=== PATIENT | female | born 1975 | race Two or more races ===

== ENCOUNTER 2020-06-01 13:15 | Emergency (ER) | payer OTHER ==
[~2020-06-01] VITALS: Ht 154.9 cm; Wt 48.5 kg
== END 2020-06-01 21:48 | disposition home or self-care (01) ==
LOC: ER 13:15
DX: C79.51 Secondary malignant neoplasm of bone (principal); C50.911 Malignant neoplasm of unspecified site of right female breast; D63.0 Anemia in neoplastic disease; Z03.818 Encounter for observation for suspected exposure to other biological agents ruled out; R53.1 Weakness

== ENCOUNTER 2020-09-08 11:27 | Inpatient (IN) | payer OTHER ==
[~2020-09-08] VITALS: Ht 154.9 cm; Wt 47.6 kg
[2020-09-09] MEDS ORDERED: DAFLONEX-XL 11300 MG (08:26)
[2020-09-09] MEDS ORDERED: METAXALONE400 MG (08:27)
== END 2020-09-10 15:46 | disposition home or self-care (01) | DRG 812 ==
LOC: SEC-K 11:27 → MEDJ 11:27
PROVIDERS: ADMIT Internal Medicine Hematology & Oncology; ATTEND Internal Medicine Hematology & Oncology
PROC: 30233N1 Transfusion of Nonautologous Red Blood Cells into Peripheral Vein, Percutaneous Approach (ICD-10-PCS; principal; 2020-09-08)
DX: D50.0 Iron deficiency anemia secondary to blood loss (chronic) (principal); E44.0 Moderate protein-calorie malnutrition; N93.8 Other specified abnormal uterine and vaginal bleeding; C50.411 Malignant neoplasm of upper-outer quadrant of right female breast; G89.3 Neoplasm related pain (acute) (chronic)
CPT/HCPCS: 240

== ENCOUNTER 2022-12-03 10:33 | Inpatient (IN) | payer OTHER ==
[~2022-12-03] VITALS: Ht 154.9 cm; Wt 44.0 kg
[~2022-12-03 10:33] MED LIST: DAFLONEX-XL 11300 MG; METAXALONE400 MG
[2022-12-05] MEDS ORDERED: GABAPENTIN250 MG/5 M PO (13:04)
[2022-12-05] MEDS ORDERED: RESTORIL15 MG PO (13:04)
[2022-12-05] MEDS ORDERED: TRAMADOL HCL50 MG PO (13:06)
[2022-12-05] MEDS ORDERED: LIDODERM1 EACH TOP (13:07)
== END 2022-12-05 14:43 | disposition home or self-care (01) | DRG 580 ==
LOC: MEDI 10:33
PROVIDERS: ADMIT Internal Medicine Hematology & Oncology; ATTEND Internal Medicine Hematology & Oncology
PROC: 07B53ZX Excision of Right Axillary Lymphatic, Percutaneous Approach, Diagnostic (ICD-10-PCS; principal; 2022-12-03)
PROC: 07B63ZX Excision of Left Axillary Lymphatic, Percutaneous Approach, Diagnostic (ICD-10-PCS; 2022-12-03)
PROC: 30233N1 Transfusion of Nonautologous Red Blood Cells into Peripheral Vein, Percutaneous Approach (ICD-10-PCS; 2022-12-03)
PROC: 0W993ZZ Drainage of Right Pleural Cavity, Percutaneous Approach (ICD-10-PCS; 2022-12-03)
DX: C50.411 Malignant neoplasm of upper-outer quadrant of right female breast (principal); C77.3 Secondary and unspecified malignant neoplasm of axilla and upper limb lymph nodes; C79.71 Secondary malignant neoplasm of right adrenal gland; J90 Pleural effusion, not elsewhere classified; E44.0 Moderate protein-calorie malnutrition; G89.3 Neoplasm related pain (acute) (chronic); D63.0 Anemia in neoplastic disease

== ENCOUNTER 2022-12-12 08:03 | Inpatient (IN) | payer OTHER ==
[~2022-12-12] VITALS: Ht 2.5 cm; Wt 44.0 kg
[~2022-12-12 08:03] MED LIST changes: +GABAPENTIN250 MG/5 M PO; +LIDODERM1 EACH TOP; +RESTORIL15 MG PO; +TRAMADOL HCL50 MG PO
--- NOTE | 2022-12-12 08:21 | NUR ---
SE RECIBE PTE ALERTA Y ORIENTADA X3 LA MISMA REFIERE PRESENTAR APRETADO EL PECHO Y [place] EN LA ESPALDA. REFIERE QUE LE HICIERON PROCEDIMIENTO DE EXTRACCION DE LIQUIDO DE PULMON Y TRANSFUNDIERON EL DE 2022.
--- NOTE | 2022-12-12 10:21 | NUR ---
PACIENTE EVALUADA POR DR. MCCOY QUIEN ORDENA TRATAMIENTO. SE ORIENTA PACIENTE SOBRE TRATAMIENTO QUIEN REFIERE ENTENDER. SE SHIRLEY MUESTRAS DE ALISON BAJO MEDIDAS ASEPTICAS, SE ADMINISTRAN MEDICAMENTOS CHRISTY ORDEN MEDICA. SE NOTIFICA A PERSONAL DE CENTRO DE IMAGENES.
== END 2022-12-21 18:03 | disposition home or self-care (01) | DRG 178 ==
LOC: ER 08:03 → MEDJ 17:45 → SEC-K 17:45 → MEDJ 20:10
PROVIDERS: ADMIT Specialist; ATTEND Specialist
PROC: 8E0ZXY6 Isolation (ICD-10-PCS; principal; 2022-12-12)
PROC: BR27ZZZ Computerized Tomography (CT Scan) of Thoracic Spine (ICD-10-PCS; 2022-12-12)
PROC: 3E0F7GC Introduction of Other Therapeutic Substance into Respiratory Tract, Via Natural or Artificial Opening (ICD-10-PCS; 2022-12-12)
PROC: 3E0F7SF Introduction of Other Gas into Respiratory Tract, Via Natural or Artificial Opening (ICD-10-PCS; 2022-12-12)
PROC: BR29ZZZ Computerized Tomography (CT Scan) of Lumbar Spine (ICD-10-PCS; 2022-12-12)
PROC: 0W993ZZ Drainage of Right Pleural Cavity, Percutaneous Approach (ICD-10-PCS; 2022-12-18)
PROC: 0W9B3ZZ Drainage of Left Pleural Cavity, Percutaneous Approach (ICD-10-PCS; 2022-12-19)
DX: U07.1 COVID-19 (principal); C77.1 Secondary and unspecified malignant neoplasm of intrathoracic lymph nodes; C79.51 Secondary malignant neoplasm of bone; C77.3 Secondary and unspecified malignant neoplasm of axilla and upper limb lymph nodes; J91.0 Malignant pleural effusion; J91.8 Pleural effusion in other conditions classified elsewhere; G89.3 Neoplasm related pain (acute) (chronic); C50.411 Malignant neoplasm of upper-outer quadrant of right female breast; M54.9 Dorsalgia, unspecified; M54.6 Pain in thoracic spine; M25.551 Pain in right hip; R07.9 Chest pain, unspecified; E83.51 Hypocalcemia; E88.09 Other disorders of plasma-protein metabolism, not elsewhere classified; M34.9 Systemic sclerosis, unspecified; M35.00 Sjogren syndrome, unspecified; Z74.01 Bed confinement status; Z17.0 Estrogen receptor positive status [ER+]

== ENCOUNTER 2023-08-29 18:25 | Inpatient (IN) | payer OTHER ==
[~2023-08-29] VITALS: Ht 152.4 cm; Wt 45.4 kg
[~2023-08-29 18:25] MED LIST changes: +ALDACTONE50 MG PO; +ANASTROZOLE1 MG PO; +IBRANCE125 MG PO; +LASIX20 MG PO; +SULINDAC200 MG PO
--- NOTE | 2023-08-29 18:40 | NUR ---
PTE ALERTA Y ORIENTADA X 3 ESFERAS EN [place] EN [place] DE FAMILIAR QUIEN REFIERE DOLOR GENERALIZADO,FALTA DE AIRE POR AGUA EN PULMONES Y NO PODER CAMINAR,PTE SE REALIZO PLACA EN EL CAROL ANN DE HOY. PTE CON DIAGNOSTICO DE CA SENO MESTATIZADO A HUESO,SE ENCUENTRA EN QUIMIOTERAPIA POR BOCA,REFERIDA POR DR MAHESH RUIZ.AL MOMENTO NO PRESENTA DIFICULTAD RESP Y HABLA EN ORACIONES COMPLETAS,SATURANDO 99%.
[2023-08-29] MEDS ORDERED: MORPHINE SULFATE 4 MG/ML VIAL IV STA (19:09)
[2023-08-29] MEDS ORDERED: GABAPENTIN 250 MG/5 ML ML PO SCH (19:10)
[2023-08-29] MEDS ORDERED: MORPHINE SULFATE 4 MG/ML VIAL IV PRN (19:15)
[2023-08-29] MEDS ORDERED: 0.9 % SODIUM CHLORIDE 1,000 ML IV SCH (19:15)
[2023-08-29 21:12] LABS: ABG PO2 106.1 mmHg (80-100); ABG pCO2 41.6 mmHg (35-45); BASE EXCESS 1.7 mmol/l; BICARBONATE 26.4 mmol/l (23-25); SaO2 98.2 %; Tco2 27.7 mmol/l
[2023-08-29 21:13] LABS: allen test SATISFACTORY; o2 21 %; puncture site RADIAL RIGHT
[2023-08-29 21:16] LABS: HEMATOCRIT 25.7 % (36.0-45.00); MEAN CELL VOLUME 95.2 fL (80.00-100.00); MEAN CORPUSCULAR HGB CONC 33.1 g/dl (32.0-36.0); PLATELET COUNT 394 K/uL (150-450); RED CELL DISTRIBUTION WIDTH 18.8 % (11.5-14.5)
[2023-08-29 21:17] LABS: HEMOGLOBIN 8.5 g/dL (12.0-15.00); MEAN CORPUSCULAR HEMOGLOBIN 31.4 pg (27.00-32.0)
[2023-08-29 21:30] LABS: ALBUMIN 3.6 gm/dL (3.4-5.0); BILIRUBIN TOTAL 0.55 mg/dL (0.3-1.2); CALCIUM 8.5 mg/dL (8.5-10.1); CREATININE SERUM 0.58 mg/dL (0.55-1.02); GFR 110.04; GLOBULINA 5.9 G/DL (2.4-3.5); POTASSIUM 4.1 mEq/L (3.5-5.1); TOTAL PROTEIN 9.5 gm/dL (6.4-8.2)
[2023-08-29 21:35] LABS: INR 1.04; PARTIAL THROMBOPLASTIN TIME 33.7 SECONDS (22.0-34.0); PROTHROMBIN TIME 10.9 SECONDS (9.0-11.5)
[2023-08-30] MEDS ORDERED: MORPHINE SULFATE 4 MG/ML CARTRIDGE IV PRN (15:00)
[2023-08-30] MEDS ORDERED: MORPHINE SULFATE IV SCH (17:15)
[2023-08-31] MEDS ORDERED: LIDOCAINE 5% 1 PATCH ADH. TOP SCH (12:00)
[2023-08-31 14:35] LABS: HEMATOCRIT 27.2 % (36.0-45.00); HEMOGLOBIN 9.3 g/dL (12.0-15.00); MEAN CELL VOLUME 90.5 fL (80.00-100.00); MEAN CORPUSCULAR HEMOGLOBIN 31.1 pg (27.00-32.0); MEAN CORPUSCULAR HGB CONC 34.3 g/dl (32.0-36.0); PLATELET COUNT 231 K/uL (150-450); RED BLOOD COUNT 3.01 M/uL (4.00-6.00); RED CELL DISTRIBUTION WIDTH 21.4 % (11.5-14.5)
[2023-08-31] MEDS ORDERED: MULTIVIT INFUSN,ADULT 4,VIT K 10 ML VIAL IV SCH (15:14)
[2023-08-31] MEDS ORDERED: DIPHENHYDRAMINE HCL 50 MG/ML VIAL 1ML IV STA (16:44)
[2023-08-31] MEDS ORDERED: DEXAMETHASONE SODIUM PHOSP/PF 10 MG/ML VIAL IV STA (16:46)
[2023-08-31] MEDS ORDERED: SOD FERRIC GLUC COMPLX/SUCROSE 62.5 MG in 0.9 % SODIUM CHLORIDE 50 ML IV SCH (17:00)
[2023-08-31] MEDS ORDERED: AA 4.25%/CAL/LYTES/DEXT 5% 1,000 ML PERIFERAL SCH (17:00)
[2023-08-31] MEDS ORDERED: FAMOTIDINE/PF 20 MG/2 ML VIAL IV PUSH STA (17:03)
[2023-08-31] MEDS ORDERED: PANTOPRAZOLE SODIUM 40 MG TABLET.DR PO SCH (17:15)
[2023-08-31] MEDS ORDERED: DIPHENHYDRAMINE HCL 50 MG/ML VIAL 1ML IV SCH (18:00)
[2023-09-01] MEDS ORDERED: FAMOTIDINE/PF 20 MG/2 ML VIAL IV PUSH SCH (05:00)
[2023-09-01] MEDS ORDERED: DEXAMETHASONE SODIUM PHOSP/PF 10 MG/ML VIAL IV SCH ×2 (09:00→14:00)
[2023-09-02 07:22] LABS: HEMATOCRIT 28.8 % (36.0-45.00); HEMOGLOBIN 9.7 g/dL (12.0-15.00); MEAN CELL VOLUME 90.8 fL (80.00-100.00); MEAN CORPUSCULAR HEMOGLOBIN 30.5 pg (27.00-32.0); MEAN CORPUSCULAR HGB CONC 33.6 g/dl (32.0-36.0); PLATELET COUNT 227 K/uL (150-450); RED BLOOD COUNT 3.17 M/uL (4.00-6.00); RED CELL DISTRIBUTION WIDTH 21.2 % (11.5-14.5)
[2023-09-02 07:23] LABS: ALBUMIN 2.6 gm/dL (3.4-5.0); BILIRUBIN TOTAL 0.57 mg/dL (0.3-1.2); BILIRUBIN,CONJUGATED 0.12 mg/dL (0.0-0.2); BILIRUBIN,UNCONJUGATED 0.45 mg/dL (0.0-0.6); CREATININE SERUM 0.36 mg/dL (0.55-1.02); GFR 190.8; GLOBULINA 4.6 G/DL (2.4-3.5); POTASSIUM 4.5 mEq/L (3.5-5.1); TOTAL PROTEIN 7.2 gm/dL (6.4-8.2)
[2023-09-02 08:16] LABS: INR 1.01; PARTIAL THROMBOPLASTIN TIME 37.9 SECONDS (22.0-34.0); PROTHROMBIN TIME 10.6 SECONDS (9.0-11.5)
[2023-09-02] MEDS ORDERED: PATIENTS OWN MEDICATION (MEDICAMENTO EN PISO) PO SCH (09:00)
[2023-09-02 09:18] LABS: UREA CLEARANCE 64.7 ML/MIN
[2023-09-02 20:04] LABS: TP PLEURAL FLUID 5.9 g/dl
[2023-09-02 20:59] LABS: MONONUCLEAR 71 %; PLEURAL FLUID APPEARANCE CLOUDY; PLEURAL FLUID COLOR RED-BLOODY; POLYMORPHONUCLEAR 29 %
[2023-09-02] MEDS ORDERED: DEXTROSE 5 % AND 0.9 % NACL 1,000 ML IV SCH (23:15)
[2023-09-03] MEDS ORDERED: GLUCAGON 1 MG VIAL ONE (01:49)
[2023-09-03 10:11] LABS: IMMUNOGLOBULIN A 300 mg/dL (87-352); IMMUNOGLOBULIN G 1814 mg/dL (586-1602); IMMUNOGLOBULIN M 61 mg/dL (26-217)
[2023-09-03 18:11] LABS: kappa lambda r 1.69 (0.26-1.65); kappa light 29.8 mg/L (3.3-19.4); lambda light 17.6 mg/L (5.7-26.3)
[2023-09-04] MEDS ORDERED: AMINO ACIDS/PROTEIN HYDROLYS 30 ML BLIST.PACK PO SCH (09:00)
[2023-09-04] MEDS ORDERED: Pregabalin 50 MG CAPSULE PO SCH (19:39)
[2023-09-05] MEDS ORDERED: DEXTROSE 50 % IN WATER 0.5 G/ML DISP.SYRIN IV ONE (11:53)
[2023-09-06 16:11] LABS: a:g ratio 0.9 (0.7-1.7); alpha 1 g 0.2 g/dL (0.0-0.4); alpha 2 0.5 g/dL (0.4-1.0); gamma g 1.9 g/dL (0.4-1.8); globulin t 3.6 g/dL (2.2-3.9); prot total 6.7 g/dL (6.0-8.5)
[2023-09-06] MEDS ORDERED: ENOXAPARIN SODIUM 40 MG/0.4 ML SYRINGE SUBCUTANEO SCH (19:19)
[2023-09-06 20:43] LABS: URINE APPEARANCE Clear; URINE BILIRRUBIN Negative (NEGATIVE); URINE BLOOD NHT; URINE COLOR Yellow; URINE GLUCOSE Negative (NEGATIVE); URINE LEUKOCYTE Large; URINE NITRATE Positive; URINE PROTEIN Negative (NEGATIVE)
[2023-09-06 20:47] LABS: URINE EPITHELIAL CELLS 6.6 uL (0.0-38.8); URINE RBC 22.1 uL (0.0-20.8); URINE WBC 135.7 uL (0.0-23.2)
[2023-09-07] MEDS ORDERED: LACTULOSE 20 G/30 ML BLIST.PACK PO STA (13:51)
[2023-09-08 07:32] LABS: ALBUMIN 2.8 gm/dL (3.4-5.0); BILIRUBIN TOTAL 0.33 mg/dL (0.3-1.2); CALCIUM 7.3 mg/dL (8.5-10.1); CREATININE SERUM 0.46 mg/dL (0.55-1.02); GFR 143.79; POTASSIUM 3.99 mEq/L (3.5-5.1); TOTAL PROTEIN 6.8 gm/dL (6.4-8.2)
[2023-09-08 08:46] LABS: HEMATOCRIT 30.1 % (36.0-45.00); HEMOGLOBIN 10.1 g/dL (12.0-15.00); MEAN CELL VOLUME 94.1 fL (80.00-100.00); MEAN CORPUSCULAR HEMOGLOBIN 31.6 pg (27.00-32.0); MEAN CORPUSCULAR HGB CONC 33.5 g/dl (32.0-36.0); PLATELET COUNT 159 K/uL (150-450); RED BLOOD COUNT 3.19 M/uL (4.00-6.00); RED CELL DISTRIBUTION WIDTH 21.2 % (11.5-14.5)
[2023-09-08] MEDS ORDERED: MORPHINE SULFATE 4 MG/ML CARTRIDGE IV PRN (15:15)
[2023-09-08] MEDS ORDERED: NITROFURANTOIN MONOHYD/M-CRYST 100 MG CAPSULE PO SCH (17:00)
[2023-09-08] MEDS ORDERED: GABAPENTIN 100 MG CAPSULE PO SCH (18:15)
[2023-09-09] MEDS ORDERED: MORPHINE SULFATE 2 MG/ML CARTRIDGE IV ONE (11:15)
[2023-09-09] MEDS ORDERED: MORPHINE SULFATE 2 MG/ML CARTRIDGE IV PRN (13:46)
[2023-09-09] MEDS ORDERED: MORPHINE SULFATE 4 MG,MORPHINE SULFATE 1 MG IV PRN (21:15)
[2023-09-10] MEDS ORDERED: Pregabalin 50 MG CAPSULE PO SCH (09:00)
[2023-09-11] MEDS ORDERED: Pregabalin 50 MG CAPSULE PO SCH (18:54)
[2023-09-12] MEDS ORDERED: FAMOtidine 20 MG TABLET PO SCH (09:00)
[2023-09-12] MEDS ORDERED: [UNRECOGNIZED DRUG - MIXTURE] TOP SCH (14:34)
[2023-09-12] MEDS ORDERED: SILVER SULFADIAZINE 50 GM,NYSTATIN 30 GM,ZINC OXIDE 30 GM TOP SCH (17:00)
[2023-09-13] MEDS ORDERED: PREGABALIN 100 MG CAPSULE PO SCH (18:00)
[2023-09-13] MEDS ORDERED: GABAPENTIN250 MG/5 M PO (18:22)
[2023-09-13] MEDS ORDERED: MACROBID 100 M100 MG PO (18:22)
[2023-09-13] MEDS ORDERED: LYRICA100 MG PO (18:24)
[2023-09-13] MEDS ORDERED: PANTOPRAZOLE SO40 MG PO (18:25)
[2023-09-13] MEDS ORDERED: SULINDAC200 MG PO (18:25)
[2023-09-13] MEDS ORDERED: FAMOTIDINE20 MG PO (18:25)
[2023-09-13] MEDS ORDERED: PROTEINEX-18 LI30 ML PO (18:26)
[2023-09-13] MEDS ORDERED: LIDODERM1 EACH TOP (18:26)
== END 2023-09-13 20:23 | disposition home or self-care (01) | DRG 55 ==
LOC: ER 18:25 → MEDJ 19:35
PROVIDERS: Radiology Vascular & Interventional Radiology; ADMIT Internal Medicine Hematology & Oncology; ATTEND Internal Medicine Hematology & Oncology
PROC: BW24YZZ Computerized Tomography (CT Scan) of Chest and Abdomen using Other Contrast (ICD-10-PCS; 2023-08-29)
PROC: BR29YZZ Computerized Tomography (CT Scan) of Lumbar Spine using Other Contrast (ICD-10-PCS; 2023-08-30)
PROC: 30233N1 Transfusion of Nonautologous Red Blood Cells into Peripheral Vein, Percutaneous Approach (ICD-10-PCS; 2023-08-30)
PROC: 02HV33Z Insertion of Infusion Device into Superior Vena Cava, Percutaneous Approach (ICD-10-PCS; 2023-08-31)
PROC: BR37YZZ Magnetic Resonance Imaging (MRI) of Thoracic Spine using Other Contrast (ICD-10-PCS; 2023-08-31)
PROC: 0W993ZX Drainage of Right Pleural Cavity, Percutaneous Approach, Diagnostic (ICD-10-PCS; principal; 2023-09-02)
PROC: 0W993ZZ Drainage of Right Pleural Cavity, Percutaneous Approach (ICD-10-PCS; 2023-09-09)
DX: C79.49 Secondary malignant neoplasm of other parts of nervous system (principal); J91.0 Malignant pleural effusion; C79.51 Secondary malignant neoplasm of bone; G95.9 Disease of spinal cord, unspecified; C77.3 Secondary and unspecified malignant neoplasm of axilla and upper limb lymph nodes; G89.3 Neoplasm related pain (acute) (chronic); C50.411 Malignant neoplasm of upper-outer quadrant of right female breast; M35.00 Sjogren syndrome, unspecified; F43.23 Adjustment disorder with mixed anxiety and depressed mood; I73.89 Other specified peripheral vascular diseases; N31.9 Neuromuscular dysfunction of bladder, unspecified; D63.0 Anemia in neoplastic disease
CPT/HCPCS: 72147

== ENCOUNTER 2023-09-19 19:36 | Inpatient (IN) | payer OTHER ==
[~2023-09-19] VITALS: Ht 162.6 cm; Wt 40.8 kg
[~2023-09-19 19:36] MED LIST changes: +FAMOTIDINE20 MG PO; +LYRICA100 MG PO; +MACROBID 100 M100 MG PO; +PANTOPRAZOLE SO40 MG PO; +PROTEINEX-18 LI30 ML PO
--- NOTE | 2023-09-19 20:12 | NUR ---
SE RECIBE PTE EN AMBULANCIA EN COMPANIA DE FAMILIAR POR DIFICULTAD RESP,PTE CON CN @ 2LTS,MACE CON JOSÉ SAINI,PTE CON CANCER DE PULMON METASTIZADO A HUESO,DALIA DE QUENTIN EL VIERNES.
[2023-09-19] MEDS ORDERED: FAMOTIDINE/PF 20 MG in 0.9 % SODIUM CHLORIDE 8 ML IV PUSH STA (20:22)
[2023-09-19] MEDS ORDERED: 0.9 % SODIUM CHLORIDE 1,000 ML IV SCH ×2 (20:30→21:45)
[2023-09-19] MEDS ORDERED: FLUCONAZOLE IN NACL,ISO-OSM 200 ML IV ONE (20:30)
[2023-09-19] MEDS ORDERED: CIPROFLOXACIN IN 5 % DEXTROSE 200 ML IV SCH (21:00)
[2023-09-19 21:08] LABS: ABG PH 7.509 (7.35-7.45); ABG pCO2 26.9 mmHg (35-45)
[2023-09-19 21:09] LABS: ABG PO2 99.7 mmHg (80-100); BASE EXCESS -0.5 mmol/l; BICARBONATE 20.9 mmol/l (23-25); Tco2 21.8 mmol/l
[2023-09-19 21:10] LABS: allen test SATISFACTORY; o2 21 %; puncture site BRADIAL RIGHT
[2023-09-19 21:11] LABS: SaO2 98.3 %
--- NOTE | 2023-09-19 21:16 | NUR ---
SE ORIENTA PTE Y FAMILIARES SOBRE TX A SEGUIR, EL CUAL REFIERE ENTENDER. SE COLECTAN MUESTRAS Y SE CANALIZA PTE UTILIZANDO MEDIDAS ASEPTICAS. SE CONECTA A MONITOR CARDIACO Y OXIMETRIA DE PULSO CONTINUA.
[2023-09-19 21:28] LABS: ALBUMIN 2.8 gm/dL (3.4-5.0); BILIRUBIN TOTAL 0.54 mg/dL (0.3-1.2); CREATININE SERUM 0.3 mg/dL (0.55-1.02); GFR 235.47; GLOBULINA 4.2 G/DL (2.4-3.5); POTASSIUM 3.28 mEq/L (3.5-5.1)
[2023-09-19 21:37] LABS: PH,URINE 7.5 (5.0-8.0); URINE APPEARANCE Clear; URINE BILIRRUBIN Negative (NEGATIVE); URINE BLOOD Negative; URINE COLOR Dark Yellow; URINE GLUCOSE Negative (NEGATIVE); URINE LEUKOCYTE Small; URINE NITRATE Negative; URINE PROTEIN 30 (NEGATIVE)
[2023-09-19 21:40] LABS: URINE BACTERIA 27.7 uL (0.0-1933); URINE WBC 85.6 uL (0.0-23.2)
[2023-09-19] MEDS ORDERED: IPRATROPIUM BROMIDE 0.5 MG/2.5 ML AMPUL.NEB IH SCH (21:46)
[2023-09-19] MEDS ORDERED: NYSTATIN 5 ML BLIST.PACK PO SCH (21:50)
[2023-09-19] MEDS ORDERED: ACETAMINOPHEN 500 MG GEL..CAP PO PRN (22:00)
[2023-09-19] MEDS ORDERED: ONDANSETRON HCL 4 MG in 0.9 % SODIUM CHLORIDE 50 ML IV PRN (22:00)
[2023-09-19 22:13] LABS: HEMATOCRIT 32.9 % (36.0-45.00); HEMOGLOBIN 10.9 g/dL (12.0-15.00); MEAN CELL VOLUME 94.2 fL (80.00-100.00); MEAN CORPUSCULAR HEMOGLOBIN 31.2 pg (27.00-32.0); MEAN CORPUSCULAR HGB CONC 33.1 g/dl (32.0-36.0); RED BLOOD COUNT 3.49 M/uL (4.00-6.00); RED CELL DISTRIBUTION WIDTH 21.9 % (11.5-14.5)
[2023-09-19 22:33] LABS: PLATELET COUNT 119 K/uL (150-450)
[2023-09-20 01:34] LABS: PARTIAL THROMBOPLASTIN TIME 30.4 SECONDS (22.0-34.0)
[2023-09-20 01:59] LABS: D DIMER > 35.20 MG/L
[2023-09-20 02:58] LABS: INR 1.17; PROTHROMBIN TIME 12.1 SECONDS (9.0-11.5)
[2023-09-20] MEDS ORDERED: MORPHINE SULFATE 2 MG/ML CARTRIDGE IV SCH (05:00)
[2023-09-20 07:48] LABS: MAGNESIUM 1.8 mg/dL (1.8-2.4); PHOSPHOROUS 2.1 mg/dL (2.5-4.9)
[2023-09-20] MEDS ORDERED: AMINO ACIDS/PROTEIN HYDROLYS 30 ML BLIST.PACK PO SCH (09:00)
[2023-09-20] MEDS ORDERED: IRON FUM,PS/FOLIC/BCOMP,C NO.9 1 CAP CAPSULE PO SCH (09:00)
[2023-09-20] MEDS ORDERED: PANTOPRAZOLE SODIUM 40 MG/VIAL VIAL IV SCH (09:00)
[2023-09-20] MEDS ORDERED: NABUMETONE 500 MG TABLET PO SCH (10:18)
[2023-09-20] MEDS ORDERED: [UNRECOGNIZED DRUG - OTHER] PO SCH (12:00)
[2023-09-20] MEDS ORDERED: MAG HYDROX PO SCH (12:00)
[2023-09-20] MEDS ORDERED: DIPHENHYDRAMINE HCL 150 MG PO SCH (12:00)
[2023-09-20] MEDS ORDERED: ALUMINUM HYD PO SCH (12:00)
[2023-09-20] MEDS ORDERED: POTASSIUM PHOS,M-BASIC-D-BASIC 18 MM in 0.9 % SODIUM CHLORIDE 250 ML IV ONE (13:00)
[2023-09-20] MEDS ORDERED: Pregabalin 50 MG CAPSULE PO STA (13:20)
[2023-09-20] MEDS ORDERED: PREGABALIN 100 MG CAPSULE PO SCH (14:21)
[2023-09-20] MEDS ORDERED: PATIENTS OWN MEDICATION (MEDICAMENTO EN PISO) PO SCH (14:59)
[2023-09-20] MEDS ORDERED: Pregabalin 50 MG CAPSULE PO SCH (17:00)
[2023-09-20] MEDS ORDERED: FLUCONAZOLE IN NACL,ISO-OSM 2 MG/ML ML IV SCH (17:00)
[2023-09-20] MEDS ORDERED: ENOXAPARIN SODIUM 40 MG/0.4 ML SYRINGE SUBCUTANEO SCH (21:00)
[2023-09-20] MEDS ORDERED: FLUCONAZOLE IN NACL,ISO-OSM 50 ML IV SCH (22:00)
[2023-09-21] MEDS ORDERED: DOPAMINE HCL IV ONE (10:45)
[2023-09-21] MEDS ORDERED: DEXTROSE IV ONE (10:45)
[2023-09-21] MEDS ORDERED: DOPamine HCL 400MG/D5w 250ML PLAST..BAG IV ONE ×2 (10:48→11:00)
[2023-09-21] MEDS ORDERED: FLUCONAZOLE IN NACL,ISO-OSM 100 ML IV SCH (12:16)
[2023-09-21] MEDS ORDERED: DOPamine HCL IN DEXTROSE 5 % 250 ML IV SCH (16:00)
[2023-09-22 08:16] LABS: HEMATOCRIT 29.4 % (36.0-45.00); HEMOGLOBIN 10.2 g/dL (12.0-15.00); MEAN CELL VOLUME 93.2 fL (80.00-100.00); MEAN CORPUSCULAR HEMOGLOBIN 32.2 pg (27.00-32.0); MEAN CORPUSCULAR HGB CONC 34.6 g/dl (32.0-36.0); PLATELET COUNT 165 K/uL (150-450); RED BLOOD COUNT 3.15 M/uL (4.00-6.00); RED CELL DISTRIBUTION WIDTH 21.9 % (11.5-14.5)
[2023-09-22 08:23] LABS: CALCIUM 7.6 mg/dL (8.5-10.1); CREATININE SERUM 0.28 mg/dL (0.55-1.02); GFR 254.99; POTASSIUM 4.05 mEq/L (3.5-5.1)
[2023-09-22] MEDS ORDERED: MIDODRINE 10 MG PO SCH (14:19)
[2023-09-22] MEDS ORDERED: LACTULOSE 20 G/30 ML BLIST.PACK PO STA (14:23)
[2023-09-22] MEDS ORDERED: NOREPINEPHRINE BITARTRATE 4 MG in DEXTROSE 5 % IN WATER 250 ML IV SCH (14:30)
[2023-09-22] MEDS ORDERED: MIDODRINE HCL 10 MG TABLET PO SCH (17:00)
[2023-09-22] MEDS ORDERED: 0.9 % SODIUM CHLORIDE 1,000 ML IV SCH (19:15)
[2023-09-22] MEDS ORDERED: Pregabalin 50 MG CAPSULE PO STA ×2 (22:04→22:19)
[2023-09-23] MEDS ORDERED: Pregabalin 50 MG CAPSULE PO SCH (09:00)
[2023-09-23] MEDS ORDERED: LACTULOSE 20 G/30 ML BLIST.PACK PO SCH (09:00)
[2023-09-23] MEDS ORDERED: SILVER SULFADIAZINE TOP SCH (17:00)
[2023-09-23] MEDS ORDERED: NYSTATIN 30 GM TOP SCH (17:00)
[2023-09-23] MEDS ORDERED: ZINC OXIDE 30 GM TOP SCH (17:00)
[2023-09-23] MEDS ORDERED: NOREPINEPHRINE BITARTRATE 1 MG/ML AMPUL IV ONE (18:10)
[2023-09-23 19:58] LABS: PH,URINE 7.5 (5.0-8.0); URINE APPEARANCE Clear; URINE BILIRRUBIN Negative (NEGATIVE); URINE BLOOD Negative; URINE COLOR Yellow; URINE GLUCOSE Negative (NEGATIVE); URINE LEUKOCYTE Negative; URINE NITRATE Negative; URINE PROTEIN Negative (NEGATIVE); URINE UROBILINOGEN 0.2 E.U./dl
[2023-09-23 20:01] LABS: URINE EPITHELIAL CELLS 1.6 uL (0.0-38.8); URINE RBC 5.1 uL (0.0-20.8); URINE WBC 1.8 uL (0.0-23.2)
[2023-09-23 20:14] LABS: URINE BACTERIA 3.7 uL (0.0-1933)
[2023-09-24] MEDS ORDERED: METRONIDAZOLE/SODIUM CHLORIDE 100 ML IV SCH (01:00)
[2023-09-24] MEDS ORDERED: ORPHENADRINE CITRATE 100 MG TABLET PO SCH (19:37)
[2023-09-25] MEDS ORDERED: APIXABAN 5 MG TABLET PO SCH (09:00)
[2023-09-26] MEDS ORDERED: MIDODRINE HCL 5 MG TABLET PO SCH (09:00)
[2023-09-27] MEDS ORDERED: KETOROLAC TROMETHAMINE 60 MG VIAL IM STA (19:18)
[2023-09-27] MEDS ORDERED: KETOROLAC TROMETHAMINE 30 MG VIAL IV PRN (19:30)
[2023-09-27] MEDS ORDERED: LIDOCAINE 5% 1 PATCH ADH. TOP SCH (20:30)
[2023-09-27] MEDS ORDERED: Pregabalin 50 MG CAPSULE PO SCH (21:00)
[2023-09-28] MEDS ORDERED: MIDODRINE HCL 5 MG TABLET PO SCH (01:00)
[2023-09-28] MEDS ORDERED: LIDOCAINE 5% 1 PATCH ADH. TOP SCH (21:00)
[2023-09-28] MEDS ORDERED: MECLIZINE HCL 12.5 MG TABLET PO SCH (21:00)
[2023-09-29 07:55] LABS: HEMATOCRIT 25.3 % (36.0-45.00); MEAN CELL VOLUME 93.4 fL (80.00-100.00); MEAN CORPUSCULAR HGB CONC 34.2 g/dl (32.0-36.0); PLATELET COUNT 287 K/uL (150-450); RED BLOOD COUNT 2.71 M/uL (4.00-6.00); RED CELL DISTRIBUTION WIDTH 21.6 % (11.5-14.5)
[2023-09-29 08:11] LABS: ALBUMIN 2.6 gm/dL (3.4-5.0); BILIRUBIN TOTAL 0.39 mg/dL (0.3-1.2); CALCIUM 7.6 mg/dL (8.5-10.1); CREATININE SERUM 0.34 mg/dL (0.55-1.02); GFR 203.8; GLOBULINA 3.5 G/DL (2.4-3.5); POTASSIUM 4.4 mEq/L (3.5-5.1); TOTAL PROTEIN 6.1 gm/dL (6.4-8.2)
[2023-09-29 08:41] LABS: HEMOGLOBIN 8.7 g/dL (12.0-15.00); MEAN CORPUSCULAR HEMOGLOBIN 32.1 pg (27.00-32.0)
[2023-09-30] MEDS ORDERED: MORPHINE SULFATE 2 MG/ML CARTRIDGE IV STA (09:41)
[2023-09-30 15:14] LABS: HEMATOCRIT 23.9 % (36.0-45.00); MEAN CELL VOLUME 94.4 fL (80.00-100.00); MEAN CORPUSCULAR HEMOGLOBIN 31.8 pg (27.00-32.0); MEAN CORPUSCULAR HGB CONC 33.7 g/dl (32.0-36.0); PLATELET COUNT 326 K/uL (150-450); RED BLOOD COUNT 2.54 M/uL (4.00-6.00); RED CELL DISTRIBUTION WIDTH 21.7 % (11.5-14.5)
[2023-09-30 15:17] LABS: HEMOGLOBIN 8.1 g/dL (12.0-15.00)
[2023-09-30 15:23] LABS: INR 1.09; PARTIAL THROMBOPLASTIN TIME 37.5 SECONDS (22.0-34.0); PROTHROMBIN TIME 11.4 SECONDS (9.0-11.5)
[2023-09-30] MEDS ORDERED: AA 4.25%/CALCIUM/LYTES/DEX 10% 1,000 ML CENTRAL SCH (17:00)
[2023-09-30] MEDS ORDERED: FLUCONAZOLE IN NACL,ISO-OSM 100 ML IV SCH (17:00)
[2023-09-30] MEDS ORDERED: EPOETIN ALFA-EPBX 10,000 UNIT/ML 2ML VIAL SUBCUTANEO SCH (17:00)
[2023-09-30 18:15] LABS: CHOL HDL RATIO 3.7 (0-5.0); CREATININE SERUM 0.37 mg/dL (0.55-1.02); GFR 184.86; POTASSIUM 4.62 mEq/L (3.5-5.1)
[2023-09-30] MEDS ORDERED: FUROsemide 20 MG/2 ML VIAL IV SCH (19:30)
[2023-09-30] MEDS ORDERED: FLUDROCORTISONE ACETATE 0.1 MG TABLET PO SCH (19:34)
[2023-09-30] MEDS ORDERED: fentaNYL 50 MCG PATCH.TD72 TD SCH (19:45)
[2023-09-30] MEDS ORDERED: DIPHENHYDRAMINE HCL 50 MG/ML VIAL 1ML IV SCH (20:00)
[2023-10-01] MEDS ORDERED: ACETAMINOPHEN 500 MG GEL..CAP PO PRN (20:30)
[2023-10-01 21:35] LABS: PH,URINE 7.5 (5.0-8.0); URINE APPEARANCE Clear; URINE BILIRRUBIN Negative (NEGATIVE); URINE BLOOD Negative; URINE COLOR Yellow; URINE GLUCOSE Negative (NEGATIVE); URINE LEUKOCYTE Negative; URINE NITRATE Negative; URINE PROTEIN Negative (NEGATIVE); URINE UROBILINOGEN 0.2 E.U./dl
[2023-10-01 21:37] LABS: URINE BACTERIA 5276.2 uL (0.0-1933); URINE WBC 3.7 uL (0.0-23.2)
[2023-10-01 21:42] LABS: URINE EPITHELIAL CELLS 1.2 uL (0.0-38.8); URINE RBC 1.5 uL (0.0-20.8)
[2023-10-01] MEDS ORDERED: LACTULOSE 10 G/15 ML ML PO SCH (22:04)
[2023-10-01 22:08] LABS: HEMATOCRIT 28.4 % (36.0-45.00); HEMOGLOBIN 9.5 g/dL (12.0-15.00); MEAN CELL VOLUME 89.9 fL (80.00-100.00); MEAN CORPUSCULAR HEMOGLOBIN 30.1 pg (27.00-32.0); MEAN CORPUSCULAR HGB CONC 33.5 g/dl (32.0-36.0); PLATELET COUNT 298 K/uL (150-450); RED BLOOD COUNT 3.16 M/uL (4.00-6.00); RED CELL DISTRIBUTION WIDTH 18.6 % (11.5-14.5)
[2023-10-02] MEDS ORDERED: MORPHINE SULFATE 2 MG/ML CARTRIDGE IV SCH (06:00)
[2023-10-02] MEDS ORDERED: MORPHINE SULFATE 2 MG/ML CARTRIDGE IV STA (16:46)
[2023-10-02] MEDS ORDERED: fentaNYL 50 MCG PATCH.TD72 TD SCH (17:00)
[2023-10-03] MEDS ORDERED: ACETAMINOPHEN 500 MG GEL..CAP PO PRN (22:00)
[2023-10-04] MEDS ORDERED: LACTULOSE 20 G/30 ML BLIST.PACK PO SCH (19:05)
[2023-10-04] MEDS ORDERED: MORPHINE SULFATE 2 MG/ML CARTRIDGE IV PRN (19:05)
[2023-10-04] MEDS ORDERED: ORPHENADRINE CITRATE 100 MG TABLET PO SCH (21:00)
[2023-10-05 00:30] LABS: HEMATOCRIT 25.5 % (36.0-45.00); MEAN CELL VOLUME 93.1 fL (80.00-100.00); MEAN CORPUSCULAR HGB CONC 32.4 g/dl (32.0-36.0); PLATELET COUNT 304 K/uL (150-450); RED BLOOD COUNT 2.74 M/uL (4.00-6.00); RED CELL DISTRIBUTION WIDTH 18.9 % (11.5-14.5)
[2023-10-05 00:47] LABS: ALBUMIN 2.4 gm/dL (3.4-5.0); CALCIUM 7.9 mg/dL (8.5-10.1); CREATININE SERUM 0.31 mg/dL (0.55-1.02); GFR 226.73; HEMOGLOBIN 8.3 g/dL (12.0-15.00); MEAN CORPUSCULAR HEMOGLOBIN 30.2 pg (27.00-32.0); PHOSPHOROUS 3.5 mg/dL (2.5-4.9); POTASSIUM 3.75 mEq/L (3.5-5.1)
[2023-10-05] MEDS ORDERED: fentaNYL 25 MCG PATCH.TD72 TD SCH (17:00)
[2023-10-06] MEDS ORDERED: MUPIROCIN 15 GM OINT..GM TUBE TOP SCH (17:00)
[2023-10-07] MEDS ORDERED: CEFTRIAXONE SODIUM 2,000 MG in 0.9 % SODIUM CHLORIDE 100 ML IV SCH (23:01)
[2023-10-08] MEDS ORDERED: METRONIDAZOLE/SODIUM CHLORIDE 100 ML IV SCH (01:00)
[2023-10-08] MEDS ORDERED: DIATRIZOATE MEGLUMINE, SODIUM 30 ML BOTTLE PO ONE (09:15)
[2023-10-08] MEDS ORDERED: FLUDROCORTISONE ACETATE 0.1 MG TABLET PO ONE (17:30)
[2023-10-08] MEDS ORDERED: DIPHENHYDRAMINE HCL 50 MG/ML VIAL 1ML IV ONE (17:30)
[2023-10-08] MEDS ORDERED: NA PHOS,M-B/NA PHOS,DI-BA 1 BOTTLE ENEMA RECTAL SCH (21:00)
[2023-10-08 23:52] LABS: PH,URINE 6.5 (5.0-8.0); URINE APPEARANCE Clear; URINE BILIRRUBIN Negative (NEGATIVE); URINE BLOOD Negative; URINE COLOR Yellow; URINE GLUCOSE Negative (NEGATIVE); URINE LEUKOCYTE Negative; URINE NITRATE Negative; URINE PROTEIN Negative (NEGATIVE); URINE UROBILINOGEN 0.2 E.U./dl
[2023-10-08 23:56] LABS: URINE EPITHELIAL CELLS 7.8 uL (0.0-38.8); URINE RBC 4.4 uL (0.0-20.8); URINE WBC 19.7 uL (0.0-23.2)
[2023-10-09] LABS: URINE BACTERIA > 9821.5 uL (0.0-1933)
[2023-10-10] MEDS ORDERED: MORPHINE SULFATE 2 MG/ML CARTRIDGE IV PRN (00:26)
[2023-10-10] MEDS ORDERED: fentaNYL 50 MCG PATCH.TD72 TD SCH (06:00)
[2023-10-10] MEDS ORDERED: CEFEPIME HCL 2,000 MG in 0.9 % SODIUM CHLORIDE 100 ML IV SCH (19:03)
[2023-10-11 05:50] LABS: HEMATOCRIT 24.3 % (36.0-45.00); MEAN CELL VOLUME 91.8 fL (80.00-100.00); MEAN CORPUSCULAR HGB CONC 33.5 g/dl (32.0-36.0); PLATELET COUNT 380 K/uL (150-450); RED BLOOD COUNT 2.65 M/uL (4.00-6.00); RED CELL DISTRIBUTION WIDTH 18.7 % (11.5-14.5)
[2023-10-11 08:20] LABS: MEAN CORPUSCULAR HEMOGLOBIN 30.5 pg (27.00-32.0)
[2023-10-11 08:21] LABS: HEMOGLOBIN 8.1 g/dL (12.0-15.00)
[2023-10-12 08:37] LABS: URINE APPEARANCE Clear; URINE BILIRRUBIN Negative (NEGATIVE); URINE BLOOD Negative; URINE COLOR Yellow; URINE GLUCOSE Negative (NEGATIVE); URINE LEUKOCYTE Negative; URINE NITRATE Negative; URINE PROTEIN Negative (NEGATIVE); URINE UROBILINOGEN 0.2 E.U./dl
[2023-10-12 09:11] LABS: URINE EPITHELIAL CELLS 0.4 uL (0.0-38.8); URINE WBC 1.3 uL (0.0-23.2)
[2023-10-12 11:46] LABS: HEMATOCRIT 36.8 % (36.0-45.00); HEMOGLOBIN 12.6 g/dL (12.0-15.00); MEAN CELL VOLUME 90.5 fL (80.00-100.00); MEAN CORPUSCULAR HEMOGLOBIN 30.9 pg (27.00-32.0); MEAN CORPUSCULAR HGB CONC 34.1 g/dl (32.0-36.0); PLATELET COUNT 364 K/uL (150-450); RED BLOOD COUNT 4.07 M/uL (4.00-6.00); RED CELL DISTRIBUTION WIDTH 16.9 % (11.5-14.5)
[2023-10-13] MEDS ORDERED: CEFEPIME HCL 2,000 MG VIAL ONE (08:23)
[2023-10-13] MEDS ORDERED: SODIUM CL 0.9% 100 ML IV.SOLN IV ONE (08:24)
[2023-10-14 18:19] LABS: PLEURAL FLUID APPEARANCE CRYSTAL CLEAR; PLEURAL FLUID COLOR YELLOW
[2023-10-14 20:09] LABS: MONONUCLEAR 97 %; POLYMORPHONUCLEAR 3 %
[2023-10-16 11:51] LABS: ABG PH 7.464 (7.35-7.45); ABG PO2 70.1 mmHg (80-100); ABG pCO2 34.7 mmHg (35-45); BASE EXCESS 1.1 mmol/l; BICARBONATE 24.3 mmol/l (23-25); Tco2 25.4 mmol/l
[2023-10-16 11:52] LABS: allen test SATISFACTORY; o2 21 %; puncture site RADIAL RIGHT
[2023-10-16] MEDS ORDERED: NOREPINEPHRINE BITARTRATE 8 MG in DEXTROSE 5 % IN WATER 250 ML IV SCH (14:30)
[2023-10-16] MEDS ORDERED: fentaNYL 50 MCG PATCH.TD72 TD SCH (17:00)
[2023-10-17] MEDS ORDERED: MEGESTROL ACETATE 400 MG/10 ML BLIST PACK PO SCH (14:30)
[2023-10-18] MEDS ORDERED: IPRATROPIU0.2 MG/1 M IH (16:37)
[2023-10-18] MEDS ORDERED: MIDODRINE HCL5 MG PO (16:38)
[2023-10-18] MEDS ORDERED: NORFLEX100MG PO (16:39)
[2023-10-18] MEDS ORDERED: INTEGRA PLUS C1 EACH PO (16:39)
[2023-10-18] MEDS ORDERED: SULINDAC200 MG PO (16:40)
[2023-10-18] MEDS ORDERED: PREGABALIN50 MG PO (16:40)
[2023-10-18] MEDS ORDERED: FENTANYL1 EAC4 TD (16:41)
[2023-10-18] MEDS ORDERED: FAMOTIDINE20 MG PO (16:41)
[2023-10-18] MEDS ORDERED: PANTOPRAZOLE SO40 MG PO (16:41)
[2023-10-18] MEDS ORDERED: FLUDROCORTISON0.1 MG PO (16:42)
[2023-10-18] MEDS ORDERED: MEGESTROL400 MG/11 PO (16:43)
[2023-10-18] MEDS ORDERED: MUPIROCIN22 GM TOP (16:43)
[2023-10-18] MEDS ORDERED: PROTEINEX-18 LI30 ML PO (16:44)
== END 2023-10-18 20:47 | disposition home or self-care (01) | DRG 871 ==
LOC: ER 19:36 → SURH 22:02 → ICU 22:02 → ICU-2 23:42 → ICU 09-20 01:27 → MEDJ 09-20 20:36
PROVIDERS: General Practice; Internal Medicine Infectious Disease; Radiology Vascular & Interventional Radiology; ADMIT Internal Medicine Hematology & Oncology; ATTEND Internal Medicine Hematology & Oncology
PROC: BW24YZZ Computerized Tomography (CT Scan) of Chest and Abdomen using Other Contrast (ICD-10-PCS; 2023-09-19)
PROC: 02HV33Z Insertion of Infusion Device into Superior Vena Cava, Percutaneous Approach (ICD-10-PCS; 2023-09-20)
PROC: 4A12X4Z Monitoring of Cardiac Electrical Activity, External Approach (ICD-10-PCS; 2023-09-20)
PROC: 30233N1 Transfusion of Nonautologous Red Blood Cells into Peripheral Vein, Percutaneous Approach (ICD-10-PCS; 2023-10-01)
PROC: BW21YZZ Computerized Tomography (CT Scan) of Abdomen and Pelvis using Other Contrast (ICD-10-PCS; 2023-10-08)
PROC: BW24YZZ Computerized Tomography (CT Scan) of Chest and Abdomen using Other Contrast (ICD-10-PCS; 2023-10-08)
PROC: 0W993ZZ Drainage of Right Pleural Cavity, Percutaneous Approach (ICD-10-PCS; 2023-10-14)
PROC: 0W9B3ZZ Drainage of Left Pleural Cavity, Percutaneous Approach (ICD-10-PCS; principal; 2023-10-15)
DX: A41.9 Sepsis, unspecified organism (principal); I26.99 Other pulmonary embolism without acute cor pulmonale; R65.21 Severe sepsis with septic shock; J86.9 Pyothorax without fistula; J91.0 Malignant pleural effusion; G95.20 Unspecified cord compression; N39.0 Urinary tract infection, site not specified; C79.51 Secondary malignant neoplasm of bone; E44.0 Moderate protein-calorie malnutrition; C77.1 Secondary and unspecified malignant neoplasm of intrathoracic lymph nodes; Z16.24 Resistance to multiple antibiotics; B37.31 Acute candidiasis of vulva and vagina; G89.3 Neoplasm related pain (acute) (chronic); E86.0 Dehydration; M35.00 Sjogren syndrome, unspecified; D63.0 Anemia in neoplastic disease; L89.159 Pressure ulcer of sacral region, unspecified stage; L08.9 Local infection of the skin and subcutaneous tissue, unspecified; B95.2 Enterococcus as the cause of diseases classified elsewhere; Z74.01 Bed confinement status; C50.411 Malignant neoplasm of upper-outer quadrant of right female breast; B96.89 Other specified bacterial agents as the cause of diseases classified elsewhere
CPT/HCPCS: 71275